=== PATIENT | female | born 1995 | race Caucasian/White ===

== ENCOUNTER 2023-08-20 14:32 | Inpatient (IN) ==
[2023-08-20] MEDS ORDERED: OXYTOCIN 30 UNITS/NSS 30 UNITS/500 ML BAG IV PRN (14:44)
[2023-08-20] MEDS: LACTATED RINGER'S 1,000 ML IV PRN (15:01)
[2023-08-20 15:16] LABS: Hematocrit (blood only) 34.3 % (37.0-47.0); Hemoglobin 11.3 g/dl (12.0-16.0); Mean Corpuscular Hemoglobin 26.6 pg (25.0-34.0); Mean Corpuscular Hgb Conc 32.9 g/dL (32.0-36.0); Mean Corpuscular Volume 80.7 fL (80.0-100.0); Mean Platelet Volume 11.6 fL (9.4-12.4); Platelet Count 300 K/uL (130-400); RDW Coefficient of Variation 14.4 % (11.5-14.5); RDW Standard Deviation 41.3 fL (36.4-46.3); Red Blood Count 4.25 M/uL (4.20-5.40); White Blood Count 19.42 K/ul (4.8-10.8)
--- NOTE | 2023-08-20 15:17 | History & Physical Report ---
Date of Service August 20, 2023 Assessment & Plan (1) Retained placenta: Plan Discussion held with patient about unusual circumstance of her presentation. Could be that placenta is detached but just trapped in uterine cavity, also could be abnormally adherent placenta, PAS spectrum. Need to perform eua, and plan manual removal of placenta, possible D&C, ultimately there is a risk for laparotomy and hysterectomy. She is well aware of this as her building certifier discussed accreta with her. Stat labs ordered. OR and anesthesia notified. Consent reviewed and signed. Seriousness of possible outcomes including no further fertility(either due to pph resulting in hyster or adhesions in uterus pp)reviewed with patient. Will treat with abx preop and decide about further dosing based on surgical findings. She is aware of possible immediate vs. delayed pph requiring further surgeries, procedures. Discussed risks, alternatives and complications to include but not limited to bleeding, infection, anesthesia, perforation of uterus requiring further procedures, injury to bowel, bladder, vessels, nerves, ureters, delayed complications, additional procedures or hospitalizations needed, deep venous thrombosis or pulmonary embolism, infertility. She desires to proceed and consent form signed. Preop, postop instructions and course reviewed. Admission and Anticipated Discharge Date Admission Date: August 20, 2023 History of Present Illness Chief Complaint: retained placenta Primary Care Provider: NO PCP 28yo now about 8hr pp from vaginal delivery at home with retained placenta. Called by pt's building certifier about delivery and pt coming due to retained placenta. According to patient she was noted to have typical amount of pp bleeding after but then even with "tugging" on cord placenta did not deliver. Patient denies pain. No recent bleeding. Baby is well and with building certifier at patient home. She notes building certifier gave her tinctures but no im medication, she also did breastfeed well but still no expulsion of placenta. She notes no recent national sales consultant care since moving to the area. Lives in [place]. She notes prior national sales consultant procedure under anesthesia with iud insertion copper T, done in OR because she could not tolerate in office but then a few months later had it removed in office. OBH: g1 GYNH: no recent pap Allergies Allergy/AdvReac Type Severity Reaction Status Date / Time No Known Allergies Allergy Unverified 08/20/23 14:45 Patient History Surgical History (Updated 08/20/23 @ 14:45 by Ayaka Ledesma RN) H/O wisdom tooth extraction History of tonsillectomy Family History (Updated 08/20/23 @ 14:47 by Ayaka Ledesma RN) Other No known health problems Social History Smoking Status: Never smoker Hx Alcohol Use: No Hx Substance Use: No Preferred Language: Estonian Communication Ability: Effective Assembler Mechanical Ordnance Required: No Beliefs That Will Affect Care: None marital status: Current Living Situation: Spouse Other Information That Helps Us Care for You: No Assistive Devices: None Review of Systems as per Subjective / HPI Physical Exam Constitutional: WD/WN, vitals as above Respiratory: normal respiratory effort, lungs clear to auscultation Cardiovascular: Rate/Rhythm: regular rate and regular rhythm Gastrointestinal (Abdomen): Percussion/Palpation: abdomen soft; abdomen nontender, no guarding and no hepatosplenomegaly Neurologic: grossly normal Psychiatric: A+Ox3, euthymic affect Genitourinary: normal external appearance ff 2 down nt, no active bleeding, no placenta tissue through os. Lymphatic: no cervical or axillary lymphadenopathy (no supraclavicular adenopathy) Results & Data Vital Signs (Past 12 Hours) Vital Signs Temp Pulse Resp BP 08/20/23 15:07 88 150/81 H 08/20/23 14:52 97 H 145/78 H 08/20/23 14:52 99.3 F 20 Coding Level of Care Code 18304 OP VST NEW HI 60 MIN (57 - DECISION FOR SURGERY) Diagnoses Retained placenta O73.0
[2023-08-20] MEDS ORDERED: fentaNYL citrate PF 100 MCG/2 ML VIAL ONE (15:25)
[2023-08-20] MEDS ORDERED: SUGAMMADEX SODIUM 200 MG/2 ML VIAL IV ONE (15:25)
[2023-08-20] MEDS ORDERED: MIDAZOLAM HCL 1 MG/ML 2ML VIAL ONE (15:25)
[2023-08-20] MEDS ORDERED: ROCURONIUM BROMIDE 10 MG/ML 5 ML VIAL IV ONE (15:25)
[2023-08-20] MEDS ORDERED: DEXAMETHASONE SOD INJ 4 MG/ML VIAL ONE (15:25)
[2023-08-20] MEDS ORDERED: PROPOFOL IV EMULSION 10 MG/ML 20 ML VIAL IV ONE (15:25)
[2023-08-20] MEDS ORDERED: ONDANSETRON INJ 2 MG/ML 2 ML VIAL ONE (15:25)
[2023-08-20 15:32] LABS: Albumin Globulin Ratio 1.3 (0.9-2); Albumin Level 3.3 gm/dl (3.4-5.0); BUN Creatinine Ratio 16.3 (10-20); Bilirubin,Total 0.4 mg/dl (0.2-1.0); Calcium 8.4 mg/dl (8.6-10.3); Creatinine Clr Calc Pharmacy 118.3 ml/min; Est GFR (African American) 117.1 ml/min; Globulin 2.5 gm/dl (2.5-4.0); Potassium 3.5 mmol/L (3.5-5.1); Total Protein 5.8 gm/dl (6.0-8.3)
[2023-08-20] MEDS ORDERED: ONDANSETRON INJ 2 MG/ML 2 ML VIAL IV PRN (15:53)
[2023-08-20] MEDS ORDERED: ePHEDrine sulfate 50 MG/ML AMP IV PRN (15:53)
[2023-08-20] MEDS ORDERED: fentaNYL citrate PF 100 MCG/2 ML VIAL IV PRN (15:53)
[2023-08-20] MEDS ORDERED: ATROPINE SULFATE 0.1 MG/ML 10ML SYR IV PRN (15:53)
--- NOTE | 2023-08-20 15:53 | Anesthesiology Consultation ---
Date of Service August 20, 2023 Assessment & Plan Chart Review Chart Review: Acceptable Risk for Surgery Consults Requested none ASA [id number] Proposed Anesthesia Anesthesia Type: General Risk / Benefits Reviewed With: PT / POA / Parent / Guardian, Accepts Plan and Informed Consent Obtained History Surgery Operation Date: 08/20/23 12:30 Proposed Procedures p Exam Under Anesthesia, Removal of Retained Placenta, Dilation and Curettage - Erika Joseph MD, FACOG s Possible Laparotomy, Possible Hysterectomy - Erika Joseph MD, FACOG Height/Weight Height: 5 ft 6 in Weight: 88.451 kg Allergies Allergy/AdvReac Type Severity Reaction Status Date / Time No Known Allergies Allergy Unverified 08/20/23 14:45 Medications Active Medications Generic Name Dose Route Start Last Admin Trade Name Freq PRN Reason Stop Dose Admin Lactated Ringer's 1,000 mls @ 125 mls/hr 08/20/23 14:44 08/20/23 15:01 Lr IV 08/22/23 14:43 999 mls/hr .Q8H PRN Administration L&D Protocol Protocol NPO Date Last Intake of Fluids: 08/20/23 Time Last Intake of Fluids: 13:30 Date Last Intake of Solids: 08/20/23 Time Last Intake of Solids: 13:30 Exercise / Class Metabolic Activity II 4-5 Yardwork/Stairs/Walk up hill Past Family History Family History Other No known health problems Past Surgical History Surgical History H/O wisdom tooth extraction History of tonsillectomy Past Anesthesia History No Hx of Anesthesia Complications and No Family Hx of Anesthesia Complications History of PONV No Hx of PONV and No Hx of Motion Sickness Social History Smoking Status: Never smoker Hx Alcohol Use: No Hx Substance Use: No Physical Exam Vital Signs Last Vital Signs Temp 97.9 F 08/20/23 15:35 Pulse 85 08/20/23 15:35 Resp 16 08/20/23 15:35 BP 124/86 08/20/23 15:35 Pulse Ox 100 08/20/23 15:35 O2 Del Method Room Air 08/20/23 15:35 ENMT Mouth: no dentition abnormality Thyromental Distance: > or= 3.5 Finger Breadths Mallampati Class: II Neck normal visual inspection Respiratory normal respiratory effort Auscultation: lungs clear to auscultation bilaterally Cardiovascular Rate/Rhythm: regular rate and regular rhythm Testing Laboratory Results 08/20/23 14:58 08/20/23 14:58
[2023-08-20] MEDS ORDERED: OXYTOCIN 10 UNITS/ML VIAL ONE (16:26)
[2023-08-20] MEDS: ceFAZolin 2000MG 2,000 MG/15 ML SYR IV SCH (16:27)
[2023-08-20] MEDS: CARBOPROST TROMETHAMINE 250 MCG/ML AMPUL ONE (16:30)
[2023-08-20] MEDS: ceFAZolin 330 MG/ML 1 GM VIAL ONE (16:30)
[2023-08-20] MEDS: miSOPROStoL 200 MCG TAB ONE (16:31)
[2023-08-20] MEDS ORDERED: ACETAMINOPHEN 325 MG TAB PO PRN (16:59)
[2023-08-20] MEDS ORDERED: IBUPROFEN 600 MG TAB PO PRN (16:59)
[2023-08-20] MEDS ORDERED: oxyCODONE/ACETAMINOPHEN 5mg/325mg TAB PO PRN (16:59)
--- NOTE | 2023-08-20 16:59 | Operative Report ---
PG Post Operative Report Pre & Post Diagnosis Operation Date: 08/20/23 12:30 Pre-Op Diagnosis: Retained placenta Post-Op Diagnosis: Retained placenta Hemorrhage I identified the patient and participated in the time-out.: Yes Procedure Operation Date: 08/20/23 12:30 Actual Procedures p Exam Under Anesthesia, Removal of Retained Placenta, Placement of ALYSE(Not Applicable) - Erika Joseph MD, FACOG Surgeon Erika Joseph MD, FACOG Edge Banding Off Bearer none Estimated Blood Loss 600 Findings Consistent with Post-Op Diagnosis (placenta partially through os, cleaved and removed intact. IM hemabate, rectal cytotec and dilute pit given.) Fluids 650cc Specimens placenta Drains none Anesthesia Type General Complications none Disposition Accompanied Patient To Recovery: No Disposition: L&D Indications 28yo with cc of retained placenta for planned OR. Description of Procedure The patient was taken to the operating room and identified. After adequate general anesthesia was obtained, she was placed in the dorsal lithotomy position and prepped and draped in the usual sterile fashion. Her bladder was drained under sterile conditions for clear yellow urine. The operators hand was placed into vagina and placenta cleaved from sidewall and with gentle traction was delivered, intact. Uterus swept with no retained products. Hemostasis initially achieved with dilute pitocin, IM hemabate and rectal cytotec but then became inadequate. Previously better contracted uterus was no longer exhibiting good tone with operators hand placed into uterus to fundus, clots extracted. Decision made to place alyse done in routine fashion. Balloon inflated with 120cc and connected to portable suction. No active bleeding noted. Dilute IV pitocin continued. Patient awoken and transferred to for recovery. No evidence of cervical lacerations of note, small vaginal tear at introitus was hemostatic and not repaired. I attest to the content of the Intraoperative Record and any orders documented therein. Any exceptions are noted below. SCREEN STRETCHER Other Procedure Codes 12039 Exam under Anesth (manual removal of placenta, placement of alyse. )
[2023-08-20] MEDS: OXYTOCIN 20 UNITS/1002ML LR IV ONE (17:24)
--- NOTE | 2023-08-20 17:36 | Anesthesiology Progress Note ---
Date of Service August 20, 2023 Anesthesia Post Procedure Vital Signs Vital Signs: Temp Pulse Pulse Resp BP BP Pulse Ox 08/20/23 17:34 89 99 08/20/23 17:29 85 135/81 99 08/20/23 17:28 18 08/20/23 17:24 89 99 08/20/23 17:19 89 124/84 98 08/20/23 17:14 92 H 99 08/20/23 17:10 37.2 C 18 08/20/23 17:09 94 H 98 08/20/23 17:08 91 H 148/82 H 08/20/23 15:35 36.6 C 85 16 124/86 100 08/20/23 15:22 88 142/79 H 08/20/23 15:07 88 150/81 H 08/20/23 14:52 97 H 145/78 H 08/20/23 14:52 37.4 C 20 O2 Del Method 08/20/23 17:34 08/20/23 17:29 08/20/23 17:28 08/20/23 17:24 08/20/23 17:19 08/20/23 17:14 08/20/23 17:10 08/20/23 17:09 08/20/23 17:08 08/20/23 15:35 Room Air 08/20/23 15:22 08/20/23 15:07 08/20/23 14:52 08/20/23 14:52 Transfer of Care Handoff Completed per policy Notes Mental Status: alert / awake / arousable and participated in evaluation Patient Amnestic to Procedure: Yes Nausea / Vomiting: adequately controlled Pain: adequately controlled Airway Patency, RR, SpO2: stable & adequate BP & HR: stable & adequate Hydration State: stable & adequate Anesthetic Complications: no major complications apparent and Pt Satisfied with anesthetic care
[2023-08-20] MEDS: OXYTOCIN 20 UNITS in LACTATED RINGER'S 1,000 ML IV SCH (18:15)
--- NOTE | 2023-08-20 19:03 | Obstetrical Progress Note ---
Date of Service August 20, 2023 Assessment & Plan (1) Retained placenta: (2) hemorrhage: (3) Gestational hypertension: Plan no evidence of active concerning bleeding. will allow po, plan 2 more doses of kefzol due to uterine exploration x multiple. move to pp. monitor bp, aware of possible need to trt bps. no sx currently. labs earlier were reviewed. will need to at least keep overnight and patient and partner agreeable. Admission and Anticipated Discharge Date Admission Date: August 20, 2023 Subjective reviewed with pt findings at surgery and postop plan. alyse has been off suction for 30min and balloon deflated with no evidence of bleeding. she is sitting up in bed with baby. Physical Exam Constitutional: WD/WN, vitals as above Genitourinary: OB Exam Abdomen: + fundal height (ff 2 down nt) perineum , no evid of bleeding. alyse removed. Results & Data Vital Signs (Past 12 Hours) Vital Signs Temp Pulse Pulse Resp BP BP Pulse Ox 08/20/23 18:54 77 99 08/20/23 18:49 98 08/20/23 18:49 77 08/20/23 18:49 74 136/83 08/20/23 18:44 71 100 08/20/23 18:39 76 145/88 H 99 08/20/23 18:37 73 91 08/20/23 18:34 70 99 08/20/23 18:29 76 144/87 H 99 08/20/23 18:28 86 92 08/20/23 18:24 67 100 08/20/23 18:22 87 92 08/20/23 18:19 75 143/87 H 100 08/20/23 18:14 92 H 90 08/20/23 18:10 20 08/20/23 18:10 84 157/86 H 08/20/23 18:09 86 86 L 08/20/23 18:04 82 100 08/20/23 17:59 82 142/90 H 98 08/20/23 17:55 18 08/20/23 17:54 82 99 08/20/23 17:49 81 145/91 H 98 08/20/23 17:44 91 H 97 08/20/23 17:40 18 08/20/23 17:39 98 08/20/23 17:39 86 08/20/23 17:39 89 133/82 03/27/24 17:34 89 99 08/20/23 17:29 85 135/81 99 08/20/23 17:28 18 08/20/23 17:24 89 99 08/20/23 17:19 89 124/84 98 08/20/23 17:14 92 H 99 08/20/23 17:10 99.0 F 18 08/20/23 17:09 94 H 98 08/20/23 17:08 91 H 148/82 H 08/20/23 15:35 97.9 F 85 16 124/86 100 08/20/23 15:22 88 142/79 H 08/20/23 15:07 88 150/81 H 08/20/23 14:52 97 H 145/78 H 08/20/23 14:52 99.3 F 20 O2 Del Method 08/20/23 18:54 08/20/23 18:49 08/20/23 18:49 08/20/23 18:49 08/20/23 18:44 08/20/23 18:39 08/20/23 18:37 08/20/23 18:34 08/20/23 18:29 08/20/23 18:28 08/20/23 18:24 08/20/23 18:22 08/20/23 18:19 08/20/23 18:14 08/20/23 18:10 08/20/23 18:10 08/20/23 18:09 08/20/23 18:04 08/20/23 17:59 08/20/23 17:55 08/20/23 17:54 08/20/23 17:49 08/20/23 17:44 08/20/23 17:40 08/20/23 17:39 08/20/23 17:39 08/20/23 17:39 08/20/23 17:34 08/20/23 17:29 08/20/23 17:28 08/20/23 17:24 08/20/23 17:19 08/20/23 17:14 08/20/23 17:10 08/20/23 17:09 08/20/23 17:08 08/20/23 15:35 Room Air 08/20/23 15:22 08/20/23 15:07 08/20/23 14:52 08/20/23 14:52 PG Care Time/CCT Total # of Minutes Spent Total Time Spent with Patient: Total time spent is greater than 50% in coordination of care (as documented) at patient's floor/unit and/or counseling patient: Coding Level of Care Code None Diagnoses Retained placenta O73.0 hemorrhage O72.1 Gestational hypertension O13.9
[2023-08-20 23:34] LABS: Hematocrit (blood only) 33.8 % (37.0-47.0); Hemoglobin 11.2 g/dl (12.0-16.0)
[2023-08-21] MEDS: BENZOCAINE 20% SPRY 85 APPLN/85 GM CAN EXT PRN
[2023-08-21] MEDS: ceFAZolin 2000MG 2,000 MG/15 ML SYR IV SCH (00:06)
--- NOTE | 2023-08-21 07:27 | Obstetrical Progress Note ---
Date of Service August 21, 2023 Assessment & Plan (1) Retained placenta: (2) hemorrhage: Plan no evidence of ongoing bleeding. doing well. voiding. will dc home after last dose of ancef due at 8am. rec she have bp check in 3-5days, bp here is ok. parameters to call reviewed. offered bp check in our office. Admission and Anticipated Discharge Date Admission Date: August 20, 2023 Subjective doing well this am. no complaints. no bleeding issues. breast feeding. she is getting one more remaining dose of abx. no fevers. hgb overnight was st able. Review of Systems Constitutional: as per Subjective / HPI Physical Exam Constitutional: WD/WN, vitals as above Respiratory: normal respiratory effort, lungs clear to auscultation Cardiovascular: Rate/Rhythm: regular rate and regular rhythm Gastrointestinal (Abdomen): soft ff 2 down nt Musculoskeletal: tr edema nontender calves Neurologic: grossly normal Psychiatric: A+Ox3, euthymic affect Results & Data Vital Signs (Past 12 Hours) Vital Signs Temp Pulse Pulse Resp BP BP Pulse Ox 08/21/23 04:00 98.1 F 76 18 122/82 95 08/21/23 00:00 98.6 F 106 H 18 125/78 96 08/20/23 22:30 98.6 F 18 08/20/23 22:29 71 08/20/23 22:29 139/72 08/20/23 20:01 75 08/20/23 20:01 137/75 08/20/23 19:57 98 08/20/23 19:57 80 08/20/23 19:52 99 08/20/23 19:52 81 08/20/23 19:47 98 08/20/23 19:47 81 08/20/23 19:42 98 08/20/23 19:42 80 08/20/23 19:37 97 08/20/23 19:37 85 08/20/23 19:32 98 08/20/23 19:32 71 O2 Del Method 08/21/23 04:00 Room Air 08/21/23 00:00 Room Air 08/20/23 22:30 08/20/23 22:29 08/20/23 22:29 08/20/23 20:01 08/20/23 20:01 08/20/23 19:57 08/20/23 19:57 08/20/23 19:52 08/20/23 19:52 08/20/23 19:47 08/20/23 19:47 08/20/23 19:42 08/20/23 19:42 08/20/23 19:37 08/20/23 19:37 08/20/23 19:32 08/20/23 19:32 PG Care Time/CCT Total # of Minutes Spent Total Time Spent with Patient: Total time spent is greater than 50% in coordination of care (as documented) at patient's floor/unit and/or counseling patient: Coding Level of Care Code None Diagnoses Retained placenta O73.0 hemorrhage O72.1
== END 2023-08-21 11:25 | disposition home or self-care (01) | DRG 769 ==
LOC: OPB 14:32 → 4S1 14:38 → 4E2 22:45
DX: O72.0 Third-stage hemorrhage; Z3A.00 Weeks of gestation of pregnancy not specified

== ENCOUNTER 2025-02-20 08:32 | Inpatient (IN) ==
[2025-02-20] MEDS ORDERED: LACTATED RINGER'S 1,000 ML IV PRN (08:45)
[2025-02-20] MEDS ORDERED: LIDOCAINE 1% LOCAL 20 ML VIAL INFIL PRN (08:45)
--- NOTE | 2025-02-20 09:04 | Labor Progress Brief Note ---
Date of Service February 20, 2025 Subjective 29yo at 35wk per LMP without ultrasound confirmation, accompanied by a self-described "direct entry software qa system specialist," who has received her only care via this person, presents to L&D. Contractions reported at home without LOF, and per the cattle broker she was 6-7cm at 0700AM today which is when they decided to present to the hospital. They present to L&D with patient at 9/100/+1 intact bulging bag. No records are currently available for review. Her prior delivery occurred at home with a different cattle broker, and was complicated by retained placenta. She did ultimately present to [facility] and had a D&C for retained placenta with Dr. Joseph, yissel Villela due to PPH. Patient today denies she ever had a PPH. She notes her most recent food intake was pretzels en route to this hospital today. Denies allergies Cogeneration Operator reports that patient tested negative for GDM, has unknown / never collected GBS status, has otherwise had no problems during care. The patient reports that in lieu of vitamins she takes "only dehydrated beef liver." There have been no ultrasounds. Patient accepted IV placement but requests pitocin be given IM because she believes she has had drug reactions that are less problematic when she receives meds by IM rather than IV route. She was advised on our usual recommendations, and particularly in light of her prior delivery complications, was strongly advised to accept pitocin as recommended in the doses and routes we typically use. She also asks for delayed cord clamping which we discussed. She refuses AROM at this time. Op report from July 2023 D&C for retained placenta reviewed. PPH of 600cc in the OR documented. Hemabate, Cytotec, Tika all done. Ancef given. Post care notes reviewed. Patient does not appear to have ever followed up with us after discharge from the hospital 08/25/23. Dr. Shahid is in-house awaiting this delivery. [id number] lab panel has been initiated. Patient's existing child is in the waiting room and FOB is moving back and forth between patient room 423 and waiting room. administrative clerk remains in room 423 with patient as a support person. Assessment & Plan (1) labor: Plan: Anticipate . Patient refusing intervention of AROM, anesthesia, and plans to decline IV pitocin. Labs ordered to complete typical routine panel and GBS unknown at so PCN ordered. Dating of is by report only. Pt aware of limitations of care here at [facility] / no NICU. Physical Exam Physical Exam: Roughly normal BMI patient of stated age, gravid with fundus c/w third trimester. In distress during contractions, sweating and c/o pressure. Able to converse between contractions. Genitourinary: Intact Vertex palpable FHT Cat 1 Zillah not well traced Results & Data Vital Signs (Past 12 Hours) Vital Signs Pulse BP 02/20/25 08:46 102 H 133/81 Coding Level of Care Code None Diagnoses labor O60.00
[2025-02-20] MEDS: PENICILLIN GK 6 MU in DEXTROSE 5% 250 ML IV ONE (09:12)
[2025-02-20 09:23] LABS: Hematocrit (blood only) 37.0 % (37.0-47.0); Hemoglobin 12.2 g/dl (12.0-16.0); Mean Corpuscular Hemoglobin 27.4 pg (25.0-34.0); Mean Corpuscular Volume 83.1 fL (80.0-100.0); Platelet Count 243 K/uL (130-400); RDW Standard Deviation 38.5 fL (36.4-46.3); Red Blood Count 4.45 M/uL (4.20-5.40); White Blood Count 18.89 K/ul (4.8-10.8)
[2025-02-20 09:40] LABS: Alanine Aminotransferase 9.0 U/L (7-52); Albumin Globulin Ratio 1.3 (0.9-2); Albumin Level 3.9 gm/dl (3.4-5.0); Alkaline Phosphatase 112.0 U/L (34-104); Anion Gap 9.0 (3-11); Bilirubin,Total 0.5 mg/dl (0.2-1.0); Blood Urea Nitrogen 7.0 mg/dl (6-23); Calcium 8.6 mg/dl (8.6-10.3); Carbon Dioxide 20.0 mmol/L (21-32); Chloride 105.0 mmol/L (98-107); Creatinine Clr Calc Pharmacy 200.5 ml/min; Globulin 3.1 gm/dl (2.5-4.0); Glucose 110.0 mg/dl (70-99(Fasting)); Potassium 3.6 mmol/L (3.5-5.1); Sodium 134.0 mmol/L (136-145); Total Protein 7.0 gm/dl (6.0-8.3)
[2025-02-20 10:10] LABS: Hep B Surface Ag with confirm Negative (Negative)
[2025-02-20 10:11] LABS: Treponema pallidum RflxConfirm Negative (Negative)
[2025-02-20 10:16] LABS: Amphetamines+Metham, Urine Neg (Neg); MDMA (Ecstacy), Urine Neg (Neg); Marijuana, Urine Neg (Neg)
[2025-02-20 10:16] LABS: Hep C Ab Rflx HepCQuant RNA Negative (Negative)
--- NOTE | 2025-02-20 10:48 | Labor Progress Brief Note ---
Date of Service February 20, 2025 Subjective Breathing through contractions, counterpressure and positioning offered by video specialist and patient finding these helpful. FOB remains back and forth between waiting room and patient room, supportive and involved. Patient feeling pressure. Voices her preference to labor down without controlled pushing efforts, and again declines AROM at any time. Cites concern for vaginal prolapse which she worries will worsen with active pushing, and cites a pelvic floor physical therapist she has been working with who advised her that she has a tendency to tense rather than push down during her active efforts. Assessment & Plan (1) labor: Plan: Patient was counseled on recommendations: positioning, AROM, and active pushing. This is intended to ensure that her delivery can be anticipated within a specific window of time, and therefore occurs when the pediatric team is pre- assembled in her room and ready to receive her directly. She was reminded that we anticipate a baby and have limited information about what the infant's needs may be. While I understand her preference to allow an unstructured delivery process, the risk of the infant delivering suddenly and at a moment when we are not as prepared as possible is significant. The initial minutes of her baby's life are a critical window for assessment and resuscitation, and by declining to be prepped for and actively move towards delivery, she is accepting some risk that her will be born when the team is less than ideally ready to respond to it. She understands and declines intervention at this time. Admission and Anticipated Discharge Date Admission Date: February 20, 2025 Physical Exam Genitourinary: FHT Cat 1 [place] Q3-4, difficult to trace 10/100/+2/intact Results & Data Vital Signs (Past 12 Hours) Vital Signs Temp Pulse Resp BP 02/20/25 08:49 97.9 F 22 02/20/25 08:46 102 H 133/81 Coding Level of Care Code None Diagnoses labor O60.00
[2025-02-20 11:59] LABS: Rubella IgG Qnt 29.9 IU/mL
[2025-02-20] MEDS ORDERED: PENICILLIN GK 3 MU in DEXTROSE 5% 100 ML IV PRN (12:00)
[2025-02-20] MEDS: OXYTOCIN 30 UNITS/NSS 30 UNITS/500 ML BAG IV PRN ×2 (14:15→14:50)
[2025-02-20] MEDS: OXYTOCIN 10 UNITS/ML VIAL ONE (14:31)
[2025-02-20] MEDS ORDERED: BENZOCAINE 20% SPRY 85 APPLN/85 GM CAN EXT PRN (14:41)
[2025-02-20] MEDS ORDERED: HYDROCORTISONE ACETATE 25 MG SUPP PR PRN (14:41)
[2025-02-20] MEDS ORDERED: IBUPROFEN 600 MG TAB PO PRN (14:41)
[2025-02-20] MEDS ORDERED: ACETAMINOPHEN 325 MG TAB PO PRN (14:41)
--- NOTE | 2025-02-20 14:45 | Delivery Summary ---
Vaginal Delivery Summary Date of Service February 20, 2025 Vaginal Delivery Summary DIAGNOSES: 1. Aggarwal intrauterine at 35wk reported gestational age 2. Labor. 3. Group B Streptococcus Unknown. 4. Limited care with spring layer 5. Prior history of PPH with retained placenta 6. Prior history of shoulder dystocia PROCEDURE: Spontaneous vaginal delivery without laceration, management of hemorrhage SURGEON: Sirisha Recinos MD. SENIOR WEB DEVELOPER: None. Quantitative BLOOD LOSS: 860 mL. COMPLICATIONS: None. PLACENTA: Spontaneous and intact with a 3-vessel cord. DISPOSITION: Stable to labor and delivery. DESCRIPTION: The patient pushed well and brought the head to in OA position. The patient actively pushed through delivering the head with the perineum protected during this time. There was no nuchal cord. The left shoulder was anterior. The shoulders and body delivered without any difficulty, and the infant was placed on the maternal abdomen. It was vigorous and moving all extremities, and making respiratory efforts. The bakery deliverer and nursery team were in the room and supported leaving the on the maternal abdomen for 60sec of delayed clamping. At 60 seconds the patient was counseled on clamping and cutting, but she withheld consent to do so until approx 3 minutes of life. At that time the cord was doubly clamped by the MD and then cut by the FOB. The placenta delivered spontaneously and was noted to be intact and with a 3VC, though on the smaller side and with circummarginate insertion of the membranes. Placenta was recommended for exam but patient declined, citing her preference to bring the placenta home. The cervix, vagina and perineum were examined and were found to be without defect requiring repair. Excessive lochia was seen immediately following placental delivery, and the patient was encouraged to accept pitocin, which she did IM in R leg. With fundal massage and expression of clots yielding 600cc QBL, further measures were recommended. Patient then accepted IV pitocin, 1000mcg rectal cytotec, and placement of a second IV site, as she had met the definition of PPH at that time. Ongoing brisk lochia then led to a recommendation for a Tika placement which patient accepted. Once placed, the Tika was effective in removing perhaps an estimated 50cc of blood that was in the tubing, and the fundus remained firm just below umbilicus thereafter. The patient is stable at this time and aware of the necessary time for Tika device to completely treat her PPH. [facility] Vaginal Delivery Charge Vaginal Delivery Codes: 78283 global code for the antepartum, delivery, and post-
[2025-02-20] MEDS: DIPHTHER/TETAN/PERTUS Vaccine (Tdap, Adol/Adult) 0.5mL IM ONE (14:49)
[2025-02-20] MEDS: OXYTOCIN 10 UNITS/ML VIAL IM ONE (14:50)
[2025-02-20] MEDS: DOCUSATE SODIUM 100 MG CAP PO SCH (20:47)
[2025-02-21 06:45] LABS: Hematocrit (blood only) 28.4 % (37.0-47.0); Hemoglobin 9.4 g/dl (12.0-16.0); Mean Corpuscular Hemoglobin 28.0 pg (25.0-34.0); Mean Corpuscular Volume 84.5 fL (80.0-100.0); Platelet Count 243 K/uL (130-400); RDW Standard Deviation 40.3 fL (36.4-46.3); Red Blood Count 3.36 M/uL (4.20-5.40); White Blood Count 19.36 K/ul (4.8-10.8)
--- NOTE | 2025-02-21 07:08 | Obstetrical Progress Note ---
Date of Service February 21, 2025 Assessment & Plan (1) labor: PPD#1 @ 35wk. Recovering well, Hgb down to 9.4 c/w blood loss and pt tolerating well. Stable for D/C at 24hr ppx if patient desires, which she voices that she does. Nesting possibility discussed, given unclear whether will be ready for d/c at 24hr. (2) hemorrhage: Subjective Ambulation: ambulating normally Voiding: no voiding problems Passing Gas:: Yes Diet Tolerance:: regular diet Lochia:: Small Feeding Type:: breast feeding Physical Exam Constitutional WD/WN, vitals as above Eyes PERRL, conjunctivae normal, anicteric sclerae Neck normal visual inspection Respiratory normal respiratory effort and able to speak in complete sentences; no respiratory distress and no labored breathing Cardiovascular Rate/Rhythm: regular rate and regular rhythm Chest (Breasts) Chest: normal inspection of chest Gastrointestinal (Abdomen) Inspection/Auscultation: abdomen normal to inspection Soft, postgravid. Fundus 3cm below umb. Soreness at umbilicus, not over fundus, likely bruising from repeated fundal massage immediately post delivery. Psychiatric A+Ox3, euthymic affect Genitourinary OB Exam Abdomen: + fundal height Fundus: + firm; not tender Results & Data Vital Signs (Past 12 Hours) Vital Signs Temp Pulse Pulse Resp BP BP Pulse Ox 02/21/25 03:32 97.9 F 84 18 115/75 98 02/20/25 23:04 98.2 F 86 18 116/74 98 02/20/25 20:29 99.0 F 82 18 131/76 97 02/20/25 19:15 99.9 F H 18 02/20/25 19:15 94 H 125/66 O2 Del Method 02/21/25 03:32 Room Air 02/20/25 23:04 Room Air 02/20/25 20:29 Room Air 02/20/25 19:15 02/20/25 19:15
--- NOTE | 2025-02-21 07:09 | Obstetrical Progress Note ---
Date of Service February 21, 2025 Assessment & Plan (1) labor: (2) hemorrhage: (3) Limited care: (4) History of shoulder dystocia in prior : (5) History of hemorrhage: (6) History of retained placenta: Plan 29 yo post- day 1 s/p and complicated with PPH. Fells well today. Vital signs stable Continue post- care Encourage ambulation and Slight pain, manageable. Hgb 9.4 Discharge home today, follow up with Dr. Recinos in 6 weeks. Admission and Anticipated Discharge Date Admission Date: February 20, 2025 Subjective 29 yo post- day 1 s/p Ambulation: ambulating normally Voiding: no voiding problems Passing Gas:: Yes Diet Tolerance:: regular diet Lochia:: Small Feeding Type:: breast feeding Current Pain Level:3/10, more of cramps than pain. Slight pain on deep palpation just below umbilicus. Resting comfortably this AM in NAD. Denies DUMONT, CP, SOB, N/V/D, LE pain/swelling. Review of Systems Review of Systems: As per HPI Physical Exam Physical Exam: General: patient resting comfortably, NAD, non-toxic in appearance, AA&O x 4, answers questions appropriately. Skin: warm, dry, intact HEENT: NC/AT, anicteric sclera, conjunctiva without injection, moist mucus membranes. Heart: +S1/S2, regular, no m/r/g Lungs: equal air entry bilaterally, no rales/rhonchi/wheezes Abd: +BS, soft, NT/ND, uterine fundus firm at umbilicus, slight pain on deep palpation just below umbilicus. Ext: warm, no clubbing/cyanosis or edema. Neuro: nonfocal, patient AA&O x 4, speech intact, no facial droop, moving all extremities on command. Results & Data Vital Signs (Past 12 Hours) Vital Signs Temp Pulse Pulse Resp BP BP Pulse Ox 02/21/25 03:32 36.6 C 84 18 115/75 98 02/20/25 23:04 36.8 C 86 18 116/74 98 02/20/25 20:29 37.2 C 82 18 131/76 97 02/20/25 19:15 37.7 C H 18 02/20/25 19:15 94 H 125/66 02/20/25 19:07 93 H 120/65 O2 Del Method 02/21/25 03:32 Room Air 02/20/25 23:04 Room Air 02/20/25 20:29 Room Air 02/20/25 19:15 02/20/25 19:15 02/20/25 19:07 Resident Activity Tracking Resident Involvement: Resident Care Provided Care Provided: Adult Hospital Medicine
--- NOTE | 2025-02-21 07:11 | Discharge Summary ---
Date of Service February 21, 2025 Admission HPI Per Admitting Provider 29yo at 35wk per LMP without ultrasound confirmation, accompanied by a self-described "direct entry rail car loader," who has received her only care via this person, presents to L&D. Contractions reported at home without LOF, and per the cot assembler she was 6-7cm at 0700AM today which is when they decided to present to the hospital. They present to L&D with patient at 9/+1 intact bulging bag. No records are currently available for review. Her prior delivery occurred at home with a different cot assembler, and was complicated by retained placenta. She did ultimately present to [facility] and had a D&C for retained placenta with Dr. Joseph, yissel Villela due to PPH. Patient today denies she ever had a PPH. She notes her most recent food intake was pretzels en route to this hospital today. Denies allergies Collision Estimator reports that patient tested negative for GDM, has unknown / never collected GBS status, has otherwise had no problems during care. The patient reports that in lieu of vitamins she takes "only dehydrated beef liver." There have been no ultrasounds. Patient accepted IV placement but requests pitocin be given IM because she believes she has had drug reactions that are less problematic when she receives meds by IM rather than IV route. She was advised on our usual recommendations, and particularly in light of her prior delivery complications, was strongly advised to accept pitocin as recommended in the doses and routes we typically use. She also asks for delayed cord clamping which we discussed. She refuses AROM at this time. Op report from July 2023 D&C for retained placenta reviewed. PPH of 600cc in the OR documented. Hemabate, Cytotec, Tika all done. Ancef given. Post care notes reviewed. Patient does not appear to have ever followed up with us after discharge from the hospital 08/25/23. Dr. Shahid is in-house awaiting this delivery. [id number] lab panel has been initiated. Patient's existing child is in the waiting room and FOB is moving back and forth between patient room 423 and waiting room. doll repairer remains in room 423 with patient as a support person. Admission Exam Per Admitting Provider Physical Exam: Roughly normal BMI patient of stated age, gravid with fundus c/w third trimester. In distress during contractions, sweating and c/o pressure. Able to converse between contractions. Genitourinary: /1Intact Vertex palpable FHT Cat 1 [place] not well traced Principal Diagnosis Discharge Exam General: patient resting comfortably, NAD, non-toxic in appearance, AA&O x 4, answers questions appropriately. Skin: warm, dry, intact HEENT: NC/AT, anicteric sclera, conjunctiva without injection, moist mucus membranes. Heart: +S1/S2, regular, no m/r/g Lungs: equal air entry bilaterally, no rales/rhonchi/wheezes Abd: +BS, soft, NT/ND, uterine fundus firm at umbilicus, slight pain on deep palpation just below umbilicus. Ext: warm, no clubbing/cyanosis or edema. Neuro: nonfocal, patient AA&O x 4, speech intact, no facial droop, moving all extremities on command. Discharge Data Allergies Allergy/AdvReac Type Severity Reaction Status Date / Time No Known Allergies Allergy Verified 02/20/25 08:54 Consultations 02/20/25 08:45 Consult Anesthesiology Stat Hospital Course (1) labor: (2) hemorrhage: (3) Limited care: (4) History of shoulder dystocia in prior : (5) History of hemorrhage: (6) History of retained placenta: Plan 29 yo post- day 1 s/p complicated with PPH. Fells well today. Vital signs stable Continue post- care Encourage ambulation and Slight pain, manageable. Hgb 9.4 Discharge home today, follow up with Dr. Recinos in 6 weeks. Total Time Total Time Spent Total Time Spent (In Minutes): See attending attestation Discharge Plan Discharge Items Patient Disposition: Home - Self-Care Reason For Visit: CHECK PRE TERM LABOR Discharge Diagnosis: Activity: Per Instructions section Non-emergency contact: Primary Care Provider and Warehouse Shipping Clerk Call non-emergency contact if: your symptoms worsen and your pain is worsening Follow-up/Referrals: PCP,NO [Primary Care Provider] - Diet: Regular Addtl Attending Provider Instructions: ACTIVITY RECOMMENDATIONS: * Gradual return to full activity over the next 2-3 weeks. * No lifting - nothing heavier than baby over the next 2-3 weeks. * Do not engage in vigorous exercise, sexual activity or sports until cleared by your physician. * Do not drive or operate any motorized equipment until cleared by your physician. * You may shower/bathe daily. MEDICATIONS: For discomfort or pain, you may use Acetaminophen (Tylenol), Ibuprofen (Advil), or Naproxen (Aleve) following the package directions. For constipation you may use Colace following the package directions. BREAST CARE: If you are not breast feeding: * Wear a supportive bra 24 hours a day for one to two weeks. * Avoid stimulating your breasts and nipples as much as possible during the first few weeks after delivery. * When taking a shower, have the warm water hit your back, not breasts. * When your breasts feel full, apply ice packs. Usually three to four times a day helps ease the discomfort. * Take a mild pain medication (Tylenol / Motrin) when you are uncomfortable. If breast feeding: * Use breast milk to lubricate nipples. Lansinoh cream may be used for sore nipples. You do not need to remove cream prior to breast feeding. If using a different brand of cream, check the label for directions regarding removal of cream prior to nursing. * Wear a supportive bra. * If having problems with breasts or breast feeding, call a surgical consultant or your health care provider. EPISIOTOMY CARE: After delivery, if you have an episiotomy (stitches), the following steps will ease discomfort and aid healing. * For the first 24 hours after delivery, place ice packs next to your episiotomy to help reduce swelling. * After the first 24 hour-period, sitz baths, either portable or in the tub, are suggested. A shower with a shower arm sprayed over the episiotomy may be comforting. * Humera care should be done after each voiding and bowel movement. Squirt warm water from a plastic bottle over the perineum (region of the body between the anus and urinary opening) and pat dry. * Use Dermoplast to ease discomfort. Shake container. [place] directly over the episiotomy. Place a Tucks on a clean sanitary pad next to your episiotomy. SPECIAL CARE INSTRUCTIONS: When you are discharged from the hospital, it is important for you to follow the instructions listed below: * During the first week at home, you should be able to care for yourself and your baby. In addition, the usual light household activities are encouraged. * Limit your activities to the way you feel. Do not try to clean the house or move furniture. Be sensible. * If you actively engage in sports and have done so up until the time of your delivery, you may resume these activities as soon as you feel able. This may take up to one month or even longer. Use good judgment. * Continue to take your vitamins for at least six weeks after the of your baby. * Your diet need not be limited unless you were on a special diet before your delivery. Breast-feeding mothers need around 2500 calories per day and at least 64-80 ounces of fluid per day (8 to 10 glasses). * You should eat foods from the four major food groups. Crash diets or fad diets are to be avoided. Eating lean meats, fresh fruits and vegetables, low-fat dairy products, high fiber foods and a regular exercise program, will help you get back to your pre- weight without putting your health at risk. * Constipation is sometimes a problem after delivery. Take a mild laxative as needed. If breast feeding, Milk of Magnesia is acceptable to use. You may use a suppository or Fleets enema if no episiotomy. * A daily shower or tub bath is suggested. Be sure to thoroughly and gently dry the perineum. * A bloody vaginal discharge will usually continue until around four weeks post . A small amount of bleeding may continue for as long as six weeks. Vaginal discharge changes from the bright red bleeding after delivery to pink then brownish and finally yellowish-pink before becoming white and disappearing. * Bleeding may increase with activity. Your first period may come in 4-8 weeks. If you are breast feeding, your period may be delayed even longer. * [place] (sex) can begin whenever both you and your partner feel comfortable and do not have any form of genital infection. It is recommended that you wait at least six weeks for internal and external healing to occur. If you have questions, please talk to your health care practitioner. A condom should be used to prevent infection and . * Foreplay, gentle intercourse and lubrication is very important the first several times to prevent pain. A water-based lubricant such as K-Y jelly or Astroglide may be used. * If you have RH negative blood and your baby is RH positive, you will receive RHOGAM by injection prior to discharge. The nurse will give you a card to keep with you that has the date and place that you received RHOGAM after delivery. * During your care, you had a Rubella screen done to check for the presence of rubella antibodies in your blood. If your test was negative, you will receive a Rubella vaccine prior to discharge. This vaccine may cause a fever, soreness at the injection site and flu-like symptoms. If these symptoms persist, notify your health care practitioner. is not advised for one month after a Rubella vaccine. * Verbalizes understanding of car seat law as reviewed with patient nursing. * Car Seat hand-out given and reviewed with patient by nursing. * Shaken baby information reviewed with patient by nursing. Call you doctor if: * Heavy bleeding (saturating several pads an hour) or passing clots the size of your fist. * A fever >101 degrees F (38.3 degrees C) on two occasions four hours apart and/or chills. * Unusual pain in the pelvic or vaginal areas. * "Baby Blues" lasting longer than two weeks. If you have any questions or concerns, call your health care practitioner at . FOLLOW UP VISIT: * Please call the office at to schedule a 6 week examination. It is important you keep this appointment. It is important for you to make arrangements for either yearly or twice yearly check-ups thereafter. Pending Studies at Discharge: No Stand-Alone Forms: [facility], Smoking Cessation Medications and DC Order Prescriptions: No Action Desiccated Beef Liver-B-12 Tablet 4 tab PO DAILY Admission Data Admit Date/Time: 02/20/25 08:45 Attending Provider: Sirisha Recinos Admit Provider: Sirisha Recinos Primary Care Provider: PCP,NO Other Providers: Wilber Seymour Resident Activity Tracking Resident Involvement: Resident Care Provided Care Provided: Adult Hospital Medicine
[2025-02-21 07:39] VITALS: O2SAT 97
[2025-02-21] MEDS: PRENATAL VITAMIN 1 TAB PO SCH (07:40)
[2025-02-21 13:31] VITALS: BP 120/59; PULSE 75; RESP 20; TEMP 97.7
== END 2025-02-21 17:50 | disposition home or self-care (01) | DRG 805 ==
LOC: 4S1 08:32 → OPB 08:32 → 4S1 08:33 → OPB 08:46 → 4S1 08:47 → 4E2 19:45